=== PATIENT | female | born 1975 | race Two or more races ===

== ENCOUNTER 2025-04-05 11:00 | Emergency (ER) | payer SELFPAY ==
[2025-04-05] VITALS (27 sets, daily range): BP systolic 100–129; BP diastolic 42–79; PULSE 68–93; RESP 14–32; TEMP 36.7–37.4; O2SAT 97–100; BMI 28.5
--- NOTE | 2025-04-05 11:11 | CT_ITS ---
FINAL REPORT TECHNIQUE: Axial imaging of the chest is obtained after the administration of contrast. 3-D MIP reformatted images were also obtained and reviewed per PE protocol. CLINICAL HISTORY: shortness of breath COMPARISON: None FINDINGS: The pulmonary arteries are well filled. There is no evidence of pulmonary embolus. There is no aortic dissection. Heart size is normal. There is no mediastinal, hilar, or axillary lymphadenopathy. There is a ground-glass opacity in the left upper lobe favored to be infectious or inflammatory. The lungs are otherwise clear. There is no pleural or pericardial effusion. Limited evaluation of the upper abdomen is without acute abnormality. No acute osseous abnormality. IMPRESSION: No evidence of pulmonary embolism or aortic dissection. Ground-glass opacity left upper lobe, favor infectious or inflammatory. Reviewed, Interpreted and Dictated by Jaimee Pinto MD Transcribed by Mary Kay Saldivar Authenticated and [facility]
--- NOTE | 2025-04-05 11:14 | CT_ITS ---
FINAL REPORT TECHNIQUE: Axial imaging of the abdomen and pelvis was obtained after the intravenous administration of contrast for CTA protocol. This study was performed with techniques to keep radiation doses as low as reasonably achievable (ALARA). Individualized dose reduction techniques using automated exposure control or adjustment of mA and/or kV according to the patient's size were employed. CLINICAL HISTORY: poss gi FINDINGS: There is no abdominal aortic aneurysm or dissection. His enteric vessels are widely patent, without stenosis. Renal arteries and iliac arteries are patent without stenosis. There is no evidence of active GI bleed. Liver is fatty infiltrated. Solid abdominal organs are without acute abnormality. There is no acute GI abnormality. Appendix is normal. Uterus and ovaries are normal for patient's age. There is no lymphadenopathy or ascites. IMPRESSION: No active GI hemorrhage or acute abnormality. Reviewed, Interpreted and Dictated by Jaimee Pinto MD Transcribed by Ramonita Ruvalcaba Authenticated and [facility]
--- NOTE | 2025-04-05 11:15 | ED_ITS ---
<Statement entered by Bennie Rios MD - 04/06/25 15:15> Bennie Rios MD: I was consulted by the LUIS, and we discussed the complexity of the problems being addressed. I approve the treatment and management plan for this patient's care in the emergency department, thus performing a substantive portion of the medical decision making. Discharge Plan Disposition Patient Disposition: Home, Self-Care Prescriptions Prescriptions: New azithromycin 250 mg tablet 250 mg PO BID 5 Days Qty: 10 0RF Rx Instructions: 250 mg orally; 2 tabs day 1 then 1 tab days 2-5 cefdinir 300 mg capsule 300 mg PO BID 10 Days Qty: 20 0RF Referrals Follow up/Referrals: Kedar Cedillo MD [Staff Physician, Oncology] - See instructions Provider,MD Erica [Primary Care Provider, Medical] - See instructions Activity Restrictions/Add. Instructions Additional Instructions/Restrictions: Please have labs repeated at your primary care office this week. Please call Dr. Cedillo for a visit to see if you have any blood disorders. Return to the ED if you have any further symptoms Clinical Impressions Clinical Impression: Anemia, Pneumonia Instructions Patient Instructions: Pneumonia in Adults, Anemia Print Language Print Language: Malay Discharge ED Provider: Bennie Rios HPI <Dee Brigette (ED), SHANK TURNER - Last Filed: 04/05/25 16:01> General Chief Complaint: Weakness Stated Complaint: Low hemoglobin Time Seen by Provider: 04/05/25 11:09 Mode of Arrival: Family Vehicle Source of Information: Patient Limitations: Language Barrier (Used monument erector) History of Present Illness HPI narrative: 49-year-old female presents to the ED today for weakness, fatigue, chest pain but no shortness of breath. She says that her PCP did lab work on Thursday and called her today to come and for possible transfusion. Patient has no nausea, vomiting or diarrhea. She reports no dark stools and no vomiting blood. She says that she has had a transfusion 2 or 3 years ago in [place] and they said it was anemia. Related Data Previous Rx's ?Medication ?Instructions ?Recorded azithromycin 250 mg tablet 250 mg PO BID 5 days #10 ta bs 04/05/25 cefdinir 300 mg capsule 300 mg PO BID 10 days #20 ca ps 04/05/25 Allergies Allergy/AdvReac Type Severity Reaction Status Date / Time No Known Allergies Allergy Verified 04/05/25 11:25 PFSH <Dee Machuca (ED), SHANK TURNER - Last Filed: 04/05/25 16:01> PFS Disclaimer: The information contained in this section may have been updated after the patient was seen, as this information can be updated by other users. Social History (Updated 04/05/25 @ 16:00 by Dee Machuca (ED), SHANK TURNER) Smoking Status: Never smoker alcohol intake: never current occupational status: other Travel in the last 8 weeks?: None Have you lived/traveled outside US in past 30 days?: No Contact w/someone who lives/traveled outside US past 30 days?: No Exposure to someone with infectious disease in past 14 days?: No Do you have a fever (greater than 100.4 F or 38 C)?: No Have you tested positive for COVID-19?: No Exposed to someone with COVID-19 in past 14 days?: No Do you have a sore throat?: No Do you have a cough?: No Do you have any weakness?: No Do you have any diarrhea?: No Are you experiencing any unusual bleeding?: No Do you have any muscle aches/pain?: No Do you have any abdominal pain?: No Are you experiencing loss of taste or smell?: No <Dee Machuca (ED), SHANK TURNER - Last Filed: 04/05/25 16:01> ROS Obtained: Yes Systems reviewed as appropriate & no additional complaints except as documented Constitutional Constitutional: Reports as per HPI Physical Exam <Dee Machuca (ED), SHANK TURNER - Last Filed: 04/05/25 16:01> General General appearance: alert and in no apparent distress Head Head exam: normocephalic Eye Eye exam: Present PERRL and EOMI ENT ENT exam: Present mucous membranes moist Neck Neck exam: Present full ROM and trachea midline Respiratory Respiratory exam: Present normal lung sounds bilaterally Cardiovascular Cardiovascular exam: Present regular rate, normal rhythm, +S1 and +S2 Abdominal Exam Abdominal exam: Present soft and normal bowel sounds Extremities Exam Extremities exam: Present full ROM Neurological Exam Neurological exam: Present alert and oriented X3 Skin Skin exam: Present warm and dry HEART Score <Dee Machuca (ED), SHANK TURNER - Last Filed: 04/05/25 16:01> HEART Score HEART Score assessment performed?: Yes History (anamnesis): Slightly suspicious ECG: Normal Age: 45-65 years Risk factors: 1-2 risk factors Troponin: </= normal limit HEART Score: 2 <Harshad Trinidad MD - Last Filed: 04/05/25 16:10> HEART Score HEART Score: 2 Critical Care <Dee Machuca (ED), SHANK TURNER - Last Filed: 04/05/25 16:01> Critical Care Time Critical Care Time: No Medical Decision Making <Dee Machuca (ED), SHANK TURNER - Last Filed: 04/05/25 16:01> [place] Inquiry Pt receiving controlled substance: No [place] was queried for this patient: No Vital Signs Vital Signs: 04/05/25 11:06 04/05/25 11:17 04/05/25 11:24 Temperature 99.4 F Temperature Source Temporal Artery Scan Pulse Rate 92 H 89 Pulse Rate [Right] 93 H Respiratory Rate 16 20 TAR Vitals Timing Blood Pressure 129/79 120/68 Blood Pressure [Right Arm] 129/79 Blood Pressure Mean Blood Pressure Mean [Right Arm] 95 Blood Pressure Source Automatic Cuff Blood Pressure Source [Right Arm] Automatic Cuff Blood Pressure Position Supine Blood Pressure Position [Right Arm] Sitting 02 Sat by Pulse Oximetry 99 98 98 Oxygen Delivery Method Room Air Room Air 04/05/25 11:25 04/05/25 11:30 04/05/25 11:45 Temperature Temperature Source Pulse Rate 85 80 82 Pulse Rate [Right] Respiratory Rate 19 32 H 19 TAR Vitals Timing Blood Pressure 121/68 120/68 117/75 Blood Pressure [Right Arm] Blood Pressure Mean Blood Pressure Mean [Right Arm] Blood Pressure Source Blood Pressure Source [Right Arm] Blood Pressure Position Blood Pressure Position [Right Arm] 02 Sat by Pulse Oximetry 98 97 98 Oxygen Delivery Method 04/05/25 12:15 04/05/25 12:45 04/05/25 12:47 Temperature 98.6 F Temperature Source Temporal Artery Scan Pulse Rate 71 74 Pulse Rate [Right] Respiratory Rate 14 15 24 TAR Vitals Timing Blood Pressure 106/59 L 108/59 L 103/60 L Blood Pressure [Right Arm] Blood Pressure Mean Blood Pressure Mean [Right Arm] Blood Pressure Source Automatic Cuff Blood Pressure Source [Right Arm] Blood Pressure Position Supine Blood Pressure Position [Right Arm] 02 Sat by Pulse Oximetry 99 98 Oxygen Delivery Method Room Air 04/05/25 12:47 04/05/25 12:52 04/05/25 13:00 Temperature 98.6 F 98.1 F Temperature Source Temporal Artery Scan Temporal Artery Scan Pulse Rate 74 75 Pulse Rate [Right] Respiratory Rate 25 H 24 16 TAR Vitals Timing Pre-Blood Vitals Blood Pressure 103/60 L 103/60 L 104/55 L Blood Pressure [Right Arm] Blood Pressure Mean 74 Blood Pressure Mean [Right Arm] Blood Pressure Source Automatic Cuff Automatic Cuff Blood Pressure Source [Right Arm] Blood Pressure Position Sitting Supine Blood Pressure Position [Right Arm] 02 Sat by Pulse Oximetry 98 100 Oxygen Delivery Method Room Air 04/05/25 13:00 04/05/25 13:01 04/05/25 13:04 Temperature 98.1 F Temperature Source Temporal Artery Scan Pulse Rate 75 76 75 Pulse Rate [Right] Respiratory Rate 25 H 24 16 TAR Vitals Timing Blood Pressure 112/58 L 104/55 L 104/55 L Blood Pressure [Right Arm] Blood Pressure Mean Blood Pressure Mean [Right Arm] Blood Pressure Source Automatic Cuff Blood Pressure Source [Right Arm] Blood Pressure Position Supine Blood Pressure Position [Right Arm] 02 Sat by Pulse Oximetry 100 100 100 Oxygen Delivery Method Room Air 04/05/25 13:05 04/05/25 13:05 04/05/25 13:10 Temperature 98.2 F 98.1 F Temperature Source Temporal Artery Scan Temporal Artery Scan Pulse Rate 71 76 71 Pulse Rate [Right] Respiratory Rate 22 20 22 TAR Vitals Timing Blood Pressure 107/63 L 107/63 L 104/59 L Blood Pressure [Right Arm] Blood Pressure Mean Blood Pressure Mean [Right Arm] Blood Pressure Source Automatic Cuff Automatic Cuff Blood Pressure Source [Right Arm] Blood Pressure Position Supine Supine Blood Pressure Position [Right Arm] 02 Sat by Pulse Oximetry 100 100 100 Oxygen Delivery Method Room Air Room Air 04/05/25 13:10 04/05/25 13:15 04/05/25 13:15 Temperature 98.2 F Temperature Source Temporal Artery Scan Pulse Rate 76 72 70 Pulse Rate [Right] Respiratory Rate 22 22 25 H TAR Vitals Timing Blood Pressure 104/59 L 103/61 L 103/61 L Blood Pressure [Right Arm] Blood Pressure Mean Blood Pressure Mean [Right Arm] Blood Pressure Source Automatic Cuff Blood Pressure Source [Right Arm] Blood Pressure Position Supine Blood Pressure Position [Right Arm] 02 Sat by Pulse Oximetry 100 100 100 Oxygen Delivery Method Room Air 04/05/25 13:17 04/05/25 13:30 04/05/25 13:30 Temperature 98.0 F Temperature Source Pulse Rate 71 70 69 Pulse Rate [Right] Respiratory Rate 26 H 19 19 TAR Vitals Timing Blood Pressure 100/60 L 106/64 L 106/64 L Blood Pressure [Right Arm] Blood Pressure Mean Blood Pressure Mean [Right Arm] Blood Pressure Source Automatic Cuff Blood Pressure Source [Right Arm] Blood Pressure Position Supine Blood Pressure Position [Right Arm] 02 Sat by Pulse Oximetry 100 100 100 Oxygen Delivery Method 04/05/25 13:33 04/05/25 13:45 04/05/25 14:00 Temperature 98.0 F Temperature Source Temporal Artery Scan Pulse Rate 70 68 71 Pulse Rate [Right] Respiratory Rate 19 15 25 H TAR Vitals Timing Blood Pressure 106/64 L 106/54 L 103/50 L Blood Pressure [Right Arm] Blood Pressure Mean Blood Pressure Mean [Right Arm] Blood Pressure Source Automatic Cuff Blood Pressure Source [Right Arm] Blood Pressure Position Supine Blood Pressure Position [Right Arm] 02 Sat by Pulse Oximetry 100 100 99 Oxygen Delivery Method Room Air 04/05/25 14:15 04/05/25 14:30 04/05/25 14:45 Temperature Temperature Source Pulse Rate 71 71 69 Pulse Rate [Right] Respiratory Rate 16 20 20 TAR Vitals Timing Blood Pressure 105/56 L 103/60 L 105/49 L Blood Pressure [Right Arm] Blood Pressure Mean Blood Pressure Mean [Right Arm] Blood Pressure Source Blood Pressure Source [Right Arm] Blood Pressure Position Blood Pressure Position [Right Arm] 02 Sat by Pulse Oximetry 100 99 99 Oxygen Delivery Method 04/05/25 15:00 04/05/25 15:57 Temperature 98.1 F Temperature Source Temporal Artery Scan Pulse Rate 72 70 Pulse Rate [Right] Respiratory Rate 26 H 22 TAR Vitals Timing Blood Pressure 107/63 L 116/67 Blood Pressure [Right Arm] Blood Pressure Mean Blood Pressure Mean [Right Arm] Blood Pressure Source Automatic Cuff Blood Pressure Source [Right Arm] Blood Pressure Position Supine Blood Pressure Position [Right Arm] 02 Sat by Pulse Oximetry 98 100 Oxygen Delivery Method Room Air Lab Data Labs: Lab Results 04/05/25 08:46: Urine Color Yellow, Urine Appearance Sl cloudy, Urine pH 6.5, Ur Specific Homer 1.025, Urine Protein Negative, Urine Glucose (UA) Negative, Urine Ketones Negative, Urine Blood Negative, Urine Nitrate Negative, Urine Bilirubin Negative, Urine Urobilinogen 0.2, Ur Leukocyte Esterase Trace, Urine RBC None, Urine WBC Occasional, Ur Squamous Epith Cells 3-5, Urine Bacteria 1+, Urine HCG, Qual Negative 04/05/25 11:20: WBC 7.3, RBC 4.52, Hgb 6.5 L*, Hct 26.3 L, MCV 58.2 L, MCH 14.4 L*, MCHC 24.7 L, RDW 22.6 H, Plt Count 205, MPV TNP, Neut % (Auto) 49.9, Lymph % (Auto) 42.9, [place] % (Auto) 4.7, Eos % (Auto) 1.9, Baso % (Auto) 0.5, Neut # (Auto) 3.6, Lymph # (Auto) 3.1, [place] # (Auto) 0.3, Eos # (Auto) 0.1, Baso # (Auto) 0.0, PT 10.7, INR 0.96, APTT 22.5 L, Sodium 139, Potassium 4.1, Chloride 105, Carbon Dioxide 25, Anion Gap 13.1, BUN 17, Creatinine 0.50 L, Estimated Creat Clear 150, Estimated GFR 132, Est GFR ( Amer) 160, Glucose 101 H, Calcium 9.2, Magnesium 2.1, Total Bilirubin 0.6, AST 47 H, ALT 31, Alkaline Phosphatase 86, Troponin I < 0.01, Total Protein 8.4 H, Albumin 4.5, Globulin 3.9 H, Albumin/Globulin Ratio 1.2, Lipase 62, Blood Type O Positive, Antibody Screen Negative, Crossmatch (AHG) See Detail 04/05/25 11:54: Blood Type Confirm O Positive 04/05/25 14:20: Troponin I < 0.01 04/05/25 11:20 04/05/25 11:20 Response Orders (Tests/Meds): ED MEDICATIONS Generic Name Dose Route Start Last Admin Trade Name Freq PRN Reason Stop Dose Admin Sodium Chloride 250 mls @ 25 mls/hr 04/05/25 11:45 04/05/25 16:03 Sod Chlor 0.9% 250ml Bag IV 04/06/25 11:44 Infused .Q10H MUSA Infusion Discontinued Medications Generic Name Dose Route Start Last Admin Trade Name Freq PRN Reason Stop Dose Admin Iopamidol 80 ml 04/05/25 12:33 04/05/25 12:34 Iopamidol-370 (76%);100ml Bottle IV 04/05/25 12:34 80 ml ONCE ONE Administration Sodium Chloride 50 ml 04/05/25 12:33 04/05/25 12:34 0.9 % Sodium Chloride 50 Ml Vial IV 04/05/25 12:34 50 ml ONCE ONE Administration Sodium Chloride 10 ml 04/05/25 12:33 04/05/25 12:34 Sodium Chloride 0.9% 10ml Syr (Rad Only) IV 04/05/25 12:34 10 ml ONCE ONE Administration ORDERS Category Date Time Status Transfuse RBC's [Red Blood Cells] Stat BBK 04/05/25 11:20 Completed Type and Screen Stat BBK 04/05/25 11:[address] angio abd/pel - GI Bleed Stat Cat Scan 04/05/25 11:14 Completed CTA Chest [CT angio chest PE protocol] Stat Cat Scan 04/05/25 11:11 Completed CBC [Complete Blood Count Auto Diff] Stat Lab 04/05/25 11:20 Completed Comprehensive Metabolic Panel Stat Lab 04/05/25 11:20 Completed Lipase Stat Lab 04/05/25 11:20 Completed Magnesium Stat Lab 04/05/25 11:20 Completed PT INR [Prothrombin Time INR] Stat Lab 04/05/25 11:20 Completed PTT [Activated Partial Thrombo Time] Stat Lab 04/05/25 11:20 Completed Trop I [Troponin I] Stat Lab 04/05/25 11:20 Completed Troponin I Q3H Lab 04/05/25 14:20 Completed Troponin I Q3H Lab 04/05/25 17:15 Ordered Urinalysis and Microscopic Stat Lab 04/05/25 08:46 Completed Urine , HCG Qual. Stat Lab 04/05/25 08:46 Completed MDM Narrative Medical Decision Narrative: patient is a 49-year-old female presenting to the emergency department for evaluation of weakness, fatigue, chest pain and possible anemia. Patient is hemodynamically stable and nontoxic-appearing upon arrival, afebrile. Differential diagnosis includes anemia, GI bleed, among others. Workup will be conducted with hematologic labs, specific imaging. Initial inventions include crystalloid bolus, likely packed red blood cells. Initial workup reviewed by me hematologic labs are remarkable for white blood cell count 7.3, hemoglobin 6.5, hematocrit 26.3, we have infused 1 unit of packed red blood cells. Sodium is 139, potassium 4.1, chloride 105 BUN and creatinine 17 and 0.5. Patient's AST 47 ALT 31. Troponin was less than 0.01 urine was essentially nonactionable. Patient had CT of chest and abdomen.CTA of chest showed no PE or aortic dissection, showed a ground glass opacity in the left upper lobe favor infectious or inflammatory. Patient has no upper respiratory symptoms. The CTA of the abdomen showed no active GI hemorrhage or acute abnormality. Patient's blood is still infusing patient is stable at this time. 1600 patient's blood is finished. She and I discussed the pneumonia and that I sent meds for her. Patient said that she already knew about the pneumonia. She was not on treatment. I discussed that I would place her on treatment. Patient is safe for discharge home with follow-up this week. <Bennie Rios MD - Last Filed: 04/05/25 12:39> Vital Signs Vital Signs: 04/05/25 11:06 04/05/25 11:17 04/05/25 11:24 Temperature 99.4 F Temperature Source Temporal Artery Scan Pulse Rate 92 H 89 Pulse Rate [Right] 93 H Respiratory Rate 16 20 TAR Vitals Timing Blood Pressure 129/79 120/68 Blood Pressure [Right Arm] 129/79 Blood Pressure Mean Blood Pressure Mean [Right Arm] 95 Blood Pressure Source Automatic Cuff Blood Pressure Source [Right Arm] Automatic Cuff Blood Pressure Position Supine Blood Pressure Position [Right Arm] Sitting 02 Sat by Pulse Oximetry 99 98 98 Oxygen Delivery Method Room Air Room Air 04/05/25 11:25 04/05/25 11:30 04/05/25 11:45 Temperature Temperature Source Pulse Rate 85 80 82 Pulse Rate [Right] Respiratory Rate 19 32 H 19 TAR Vitals Timing Blood Pressure 121/68 120/68 117/75 Blood Pressure [Right Arm] Blood Pressure Mean Blood Pressure Mean [Right Arm] Blood Pressure Source Blood Pressure Source [Right Arm] Blood Pressure Position Blood Pressure Position [Right Arm] 02 Sat by Pulse Oximetry 98 97 98 Oxygen Delivery Method 04/05/25 12:15 04/05/25 12:45 04/05/25 12:47 Temperature 98.6 F Temperature Source Temporal Artery Scan Pulse Rate 71 74 Pulse Rate [Right] Respiratory Rate 14 15 24 TAR Vitals Timing Blood Pressure 106/59 L 108/59 L 103/60 L Blood Pressure [Right Arm] Blood Pressure Mean Blood Pressure Mean [Right Arm] Blood Pressure Source Automatic Cuff Blood Pressure Source [Right Arm] Blood Pressure Position Supine Blood Pressure Position [Right Arm] 02 Sat by Pulse Oximetry 99 98 Oxygen Delivery Method Room Air 04/05/25 12:47 04/05/25 12:52 04/05/25 13:00 Temperature 98.6 F 98.1 F Temperature Source Temporal Artery Scan Temporal Artery Scan Pulse Rate 74 75 Pulse Rate [Right] Respiratory Rate 25 H 24 16 TAR Vitals Timing Pre-Blood Vitals Blood Pressure 103/60 L 103/60 L 104/55 L Blood Pressure [Right Arm] Blood Pressure Mean 74 Blood Pressure Mean [Right Arm] Blood Pressure Source Automatic Cuff Automatic Cuff Blood Pressure Source [Right Arm] Blood Pressure Position Sitting Supine Blood Pressure Position [Right Arm] 02 Sat by Pulse Oximetry 98 100 Oxygen Delivery Method Room Air 04/05/25 13:00 04/05/25 13:01 04/05/25 13:04 Temperature 98.1 F Temperature Source Temporal Artery Scan Pulse Rate 75 76 75 Pulse Rate [Right] Respiratory Rate 25 H 24 16 TAR Vitals Timing Blood Pressure 112/58 L 104/55 L 104/55 L Blood Pressure [Right Arm] Blood Pressure Mean Blood Pressure Mean [Right Arm] Blood Pressure Source Automatic Cuff Blood Pressure Source [Right Arm] Blood Pressure Position Supine Blood Pressure Position [Right Arm] 02 Sat by Pulse Oximetry 100 100 100 Oxygen Delivery Method Room Air 04/05/25 13:05 04/05/25 13:05 04/05/25 13:10 Temperature 98.2 F 98.1 F Temperature Source Temporal Artery Scan Temporal Artery Scan Pulse Rate 71 76 71 Pulse Rate [Right] Respiratory Rate 22 20 22 TAR Vitals Timing Blood Pressure 107/63 L 107/63 L 104/59 L Blood Pressure [Right Arm] Blood Pressure Mean Blood Pressure Mean [Right Arm] Blood Pressure Source Automatic Cuff Automatic Cuff Blood Pressure Source [Right Arm] Blood Pressure Position Supine Supine Blood Pressure Position [Right Arm] 02 Sat by Pulse Oximetry 100 100 100 Oxygen Delivery Method Room Air Room Air 04/05/25 13:10 04/05/25 13:15 04/05/25 13:15 Temperature 98.2 F Temperature Source Temporal Artery Scan Pulse Rate 76 72 70 Pulse Rate [Right] Respiratory Rate 22 22 25 H TAR Vitals Timing Blood Pressure 104/59 L 103/61 L 103/61 L Blood Pressure [Right Arm] Blood Pressure Mean Blood Pressure Mean [Right Arm] Blood Pressure Source Automatic Cuff Blood Pressure Source [Right Arm] Blood Pressure Position Supine Blood Pressure Position [Right Arm] 02 Sat by Pulse Oximetry 100 100 100 Oxygen Delivery Method Room Air 04/05/25 13:17 04/05/25 13:30 04/05/25 13:30 Temperature 98.0 F Temperature Source Pulse Rate 71 70 69 Pulse Rate [Right] Respiratory Rate 26 H 19 19 TAR Vitals Timing Blood Pressure 100/60 L 106/64 L 106/64 L Blood Pressure [Right Arm] Blood Pressure Mean Blood Pressure Mean [Right Arm] Blood Pressure Source Automatic Cuff Blood Pressure Source [Right Arm] Blood Pressure Position Supine Blood Pressure Position [Right Arm] 02 Sat by Pulse Oximetry 100 100 100 Oxygen Delivery Method 04/05/25 13:33 04/05/25 13:45 04/05/25 14:00 Temperature 98.0 F Temperature Source Temporal Artery Scan Pulse Rate 70 68 71 Pulse Rate [Right] Respiratory Rate 19 15 25 H TAR Vitals Timing Blood Pressure 106/64 L 106/54 L 103/50 L Blood Pressure [Right Arm] Blood Pressure Mean Blood Pressure Mean [Right Arm] Blood Pressure Source Automatic Cuff Blood Pressure Source [Right Arm] Blood Pressure Position Supine Blood Pressure Position [Right Arm] 02 Sat by Pulse Oximetry 100 100 99 Oxygen Delivery Method Room Air 04/05/25 14:15 04/05/25 14:30 04/05/25 14:45 Temperature Temperature Source Pulse Rate 71 71 69 Pulse Rate [Right] Respiratory Rate 16 20 20 TAR Vitals Timing Blood Pressure 105/56 L 103/60 L 105/49 L Blood Pressure [Right Arm] Blood Pressure Mean Blood Pressure Mean [Right Arm] Blood Pressure Source Blood Pressure Source [Right Arm] Blood Pressure Position Blood Pressure Position [Right Arm] 02 Sat by Pulse Oximetry 100 99 99 Oxygen Delivery Method 04/05/25 15:00 04/05/25 15:57 Temperature 98.1 F Temperature Source Temporal Artery Scan Pulse Rate 72 70 Pulse Rate [Right] Respiratory Rate 26 H 22 TAR Vitals Timing Blood Pressure 107/63 L 116/67 Blood Pressure [Right Arm] Blood Pressure Mean Blood Pressure Mean [Right Arm] Blood Pressure Source Automatic Cuff Blood Pressure Source [Right Arm] Blood Pressure Position Supine Blood Pressure Position [Right Arm] 02 Sat by Pulse Oximetry 98 100 Oxygen Delivery Method Room Air Lab Data Labs: Lab Results 04/05/25 08:46: Urine Color Yellow, Urine Appearance Sl cloudy, Urine pH 6.5, Ur Specific [place] 1.025, Urine Protein Negative, Urine Glucose (UA) Negative, Urine Ketones Negative, Urine Blood Negative, Urine Nitrate Negative, Urine Bilirubin Negative, Urine Urobilinogen 0.2, Ur Leukocyte Esterase Trace, Urine RBC None, Urine WBC Occasional, Ur Squamous Epith Cells 3-5, Urine Bacteria 1+, Urine HCG, Qual Negative 04/05/25 11:20: WBC 7.3, RBC 4.52, Hgb 6.5 L*, Hct 26.3 L, MCV 58.2 L, MCH 14.4 L*, MCHC 24.7 L, RDW 22.6 H, Plt Count 205, MPV TNP, Neut % (Auto) 49.9, Lymph % (Auto) 42.9, [place] % (Auto) 4.7, Eos % (Auto) 1.9, Baso % (Auto) 0.5, Neut # (Auto) 3.6, Lymph # (Auto) 3.1, [place] # (Auto) 0.3, Eos # (Auto) 0.1, Baso # (Auto) 0.0, PT 10.7, INR 0.96, APTT 22.5 L, Sodium 139, Potassium 4.1, Chloride 105, Carbon Dioxide 25, Anion Gap 13.1, BUN 17, Creatinine 0.50 L, Estimated Creat Clear 150, Estimated GFR 132, Est GFR ( Amer) 160, Glucose 101 H, Calcium 9.2, Magnesium 2.1, Total Bilirubin 0.6, AST 47 H, ALT 31, Alkaline Phosphatase 86, Troponin I < 0.01, Total Protein 8.4 H, Albumin 4.5, Globulin 3.9 H, Albumin/Globulin Ratio 1.2, Lipase 62, Blood Type O Positive, Antibody Screen Negative, Crossmatch (AHG) See Detail 04/05/25 11:54: Blood Type Confirm O Positive 04/05/25 14:20: Troponin I < 0.01 Response Orders (Tests/Meds): ED MEDICATIONS Generic Name Dose Route Start Last Admin Trade Name Freq PRN Reason Stop Dose Admin Sodium Chloride 250 mls @ 25 mls/hr 04/05/25 11:45 04/05/25 16:03 Sod Chlor 0.9% 250ml Bag IV 04/06/25 11:44 Infused .Q10H MUSA Infusion Discontinued Medications Generic Name Dose Route Start Last Admin Trade Name Freq PRN Reason Stop Dose Admin Iopamidol 80 ml 04/05/25 12:33 04/05/25 12:34 Iopamidol-370 (76%);100ml Bottle IV 04/05/25 12:34 80 ml ONCE ONE Administration Sodium Chloride 50 ml 04/05/25 12:33 04/05/25 12:34 0.9 % Sodium Chloride 50 Ml Vial IV 04/05/25 12:34 50 ml ONCE ONE Administration Sodium Chloride 10 ml 04/05/25 12:33 04/05/25 12:34 Sodium Chloride 0.9% 10ml Syr (Rad Only) IV 04/05/25 12:34 10 ml ONCE ONE Administration ORDERS Category Date Time Status Transfuse RBC's [Red Blood Cells] Stat BBK 04/05/25 11:20 Completed Type and Screen Stat BBK 04/05/25 11:[address] angio abd/pel - GI Bleed Stat Cat Scan 04/05/25 11:14 Completed CTA Chest [CT angio chest PE protocol] Stat Cat Scan 04/05/25 11:11 Completed CBC [Complete Blood Count Auto Diff] Stat Lab 04/05/25 11:20 Completed Comprehensive Metabolic Panel Stat Lab 04/05/25 11:20 Completed Lipase Stat Lab 04/05/25 11:20 Completed Magnesium Stat Lab 04/05/25 11:20 Completed PT INR [Prothrombin Time INR] Stat Lab 04/05/25 11:20 Completed PTT [Activated Partial Thrombo Time] Stat Lab 04/05/25 11:20 Completed Trop I [Troponin I] Stat Lab 04/05/25 11:20 Completed Troponin I Q3H Lab 04/05/25 14:20 Completed Troponin I Q3H Lab 04/05/25 17:15 Ordered Urinalysis and Microscopic Stat Lab 04/05/25 08:46 Completed Urine , HCG Qual. Stat Lab 04/05/25 08:46 Completed ECG Data Tracing #1: Attestation: I reviewed this ECG and interpreted as documented below: ECG Narrative: Normal sinus rhythm. No ST elevation or depression. QTc normal at 399 <Harshad Trinidad MD - Last Filed: 04/05/25 16:10> Vital Signs Vital Signs: 04/05/25 11:06 04/05/25 11:17 04/05/25 11:24 Temperature 99.4 F Temperature Source Temporal Artery Scan Pulse Rate 92 H 89 Pulse Rate [Right] 93 H Respiratory Rate 16 20 TAR Vitals Timing Blood Pressure 129/79 120/68 Blood Pressure [Right Arm] 129/79 Blood Pressure Mean Blood Pressure Mean [Right Arm] 95 Blood Pressure Source Automatic Cuff Blood Pressure Source [Right Arm] Automatic Cuff Blood Pressure Position Supine Blood Pressure Position [Right Arm] Sitting 02 Sat by Pulse Oximetry 99 98 98 Oxygen Delivery Method Room Air Room Air 04/05/25 11:25 04/05/25 11:30 04/05/25 11:45 Temperature Temperature Source Pulse Rate 85 80 82 Pulse Rate [Right] Respiratory Rate 19 32 H 19 TAR Vitals Timing Blood Pressure 121/68 120/68 117/75 Blood Pressure [Right Arm] Blood Pressure Mean Blood Pressure Mean [Right Arm] Blood Pressure Source Blood Pressure Source [Right Arm] Blood Pressure Position Blood Pressure Position [Right Arm] 02 Sat by Pulse Oximetry 98 97 98 Oxygen Delivery Method 04/05/25 12:15 04/05/25 12:45 04/05/25 12:47 Temperature 98.6 F Temperature Source Temporal Artery Scan Pulse Rate 71 74 Pulse Rate [Right] Respiratory Rate 14 15 24 TAR Vitals Timing Blood Pressure 106/59 L 108/59 L 103/60 L Blood Pressure [Right Arm] Blood Pressure Mean Blood Pressure Mean [Right Arm] Blood Pressure Source Automatic Cuff Blood Pressure Source [Right Arm] Blood Pressure Position Supine Blood Pressure Position [Right Arm] 02 Sat by Pulse Oximetry 99 98 Oxygen Delivery Method Room Air 04/05/25 12:47 04/05/25 12:52 04/05/25 13:00 Temperature 98.6 F 98.1 F Temperature Source Temporal Artery Scan Temporal Artery Scan Pulse Rate 74 75 Pulse Rate [Right] Respiratory Rate 25 H 24 16 TAR Vitals Timing Pre-Blood Vitals Blood Pressure 103/60 L 103/60 L 104/55 L Blood Pressure [Right Arm] Blood Pressure Mean 74 Blood Pressure Mean [Right Arm] Blood Pressure Source Automatic Cuff Automatic Cuff Blood Pressure Source [Right Arm] Blood Pressure Position Sitting Supine Blood Pressure Position [Right Arm] 02 Sat by Pulse Oximetry 98 100 Oxygen Delivery Method Room Air 04/05/25 13:00 04/05/25 13:01 04/05/25 13:04 Temperature 98.1 F Temperature Source Temporal Artery Scan Pulse Rate 75 76 75 Pulse Rate [Right] Respiratory Rate 25 H 24 16 TAR Vitals Timing Blood Pressure 112/58 L 104/55 L 104/55 L Blood Pressure [Right Arm] Blood Pressure Mean Blood Pressure Mean [Right Arm] Blood Pressure Source Automatic Cuff Blood Pressure Source [Right Arm] Blood Pressure Position Supine Blood Pressure Position [Right Arm] 02 Sat by Pulse Oximetry 100 100 100 Oxygen Delivery Method Room Air 04/05/25 13:05 04/05/25 13:05 04/05/25 13:10 Temperature 98.2 F 98.1 F Temperature Source Temporal Artery Scan Temporal Artery Scan Pulse Rate 71 76 71 Pulse Rate [Right] Respiratory Rate 22 20 22 TAR Vitals Timing Blood Pressure 107/63 L 107/63 L 104/59 L Blood Pressure [Right Arm] Blood Pressure Mean Blood Pressure Mean [Right Arm] Blood Pressure Source Automatic Cuff Automatic Cuff Blood Pressure Source [Right Arm] Blood Pressure Position Supine Supine Blood Pressure Position [Right Arm] 02 Sat by Pulse Oximetry 100 100 100 Oxygen Delivery Method Room Air Room Air 04/05/25 13:10 04/05/25 13:15 04/05/25 13:15 Temperature 98.2 F Temperature Source Temporal Artery Scan Pulse Rate 76 72 70 Pulse Rate [Right] Respiratory Rate 22 22 25 H TAR Vitals Timing Blood Pressure 104/59 L 103/61 L 103/61 L Blood Pressure [Right Arm] Blood Pressure Mean Blood Pressure Mean [Right Arm] Blood Pressure Source Automatic Cuff Blood Pressure Source [Right Arm] Blood Pressure Position Supine Blood Pressure Position [Right Arm] 02 Sat by Pulse Oximetry 100 100 100 Oxygen Delivery Method Room Air 04/05/25 13:17 04/05/25 13:30 04/05/25 13:30 Temperature 98.0 F Temperature Source Pulse Rate 71 70 69 Pulse Rate [Right] Respiratory Rate 26 H 19 19 TAR Vitals Timing Blood Pressure 100/60 L 106/64 L 106/64 L Blood Pressure [Right Arm] Blood Pressure Mean Blood Pressure Mean [Right Arm] Blood Pressure Source Automatic Cuff Blood Pressure Source [Right Arm] Blood Pressure Position Supine Blood Pressure Position [Right Arm] 02 Sat by Pulse Oximetry 100 100 100 Oxygen Delivery Method 04/05/25 13:33 04/05/25 13:45 04/05/25 14:00 Temperature 98.0 F Temperature Source Temporal Artery Scan Pulse Rate 70 68 71 Pulse Rate [Right] Respiratory Rate 19 15 25 H TAR Vitals Timing Blood Pressure 106/64 L 106/54 L 103/50 L Blood Pressure [Right Arm] Blood Pressure Mean Blood Pressure Mean [Right Arm] Blood Pressure Source Automatic Cuff Blood Pressure Source [Right Arm] Blood Pressure Position Supine Blood Pressure Position [Right Arm] 02 Sat by Pulse Oximetry 100 100 99 Oxygen Delivery Method Room Air 04/05/25 14:15 04/05/25 14:30 04/05/25 14:45 Temperature Temperature Source Pulse Rate 71 71 69 Pulse Rate [Right] Respiratory Rate 16 20 20 TAR Vitals Timing Blood Pressure 105/56 L 103/60 L 105/49 L Blood Pressure [Right Arm] Blood Pressure Mean Blood Pressure Mean [Right Arm] Blood Pressure Source Blood Pressure Source [Right Arm] Blood Pressure Position Blood Pressure Position [Right Arm] 02 Sat by Pulse Oximetry 100 99 99 Oxygen Delivery Method 04/05/25 15:00 04/05/25 15:57 Temperature 98.1 F Temperature Source Temporal Artery Scan Pulse Rate 72 70 Pulse Rate [Right] Respiratory Rate 26 H 22 TAR Vitals Timing Blood Pressure 107/63 L 116/67 Blood Pressure [Right Arm] Blood Pressure Mean Blood Pressure Mean [Right Arm] Blood Pressure Source Automatic Cuff Blood Pressure Source [Right Arm] Blood Pressure Position Supine Blood Pressure Position [Right Arm] 02 Sat by Pulse Oximetry 98 100 Oxygen Delivery Method Room Air Lab Data Labs: Lab Results 04/05/25 08:46: Urine Color Yellow, Urine Appearance Sl cloudy, Urine pH 6.5, Ur Specific Homer 1.025, Urine Protein Negative, Urine Glucose (UA) Negative, Urine Ketones Negative, Urine Blood Negative, Urine Nitrate Negative, Urine Bilirubin Negative, Urine Urobilinogen 0.2, Ur Leukocyte Esterase Trace, Urine RBC None, Urine WBC Occasional, Ur Squamous Epith Cells 3-5, Urine Bacteria 1+, Urine HCG, Qual Negative 04/05/25 11:20: WBC 7.3, RBC 4.52, Hgb 6.5 L*, Hct 26.3 L, MCV 58.2 L, MCH 14.4 L*, MCHC 24.7 L, RDW 22.6 H, Plt Count 205, MPV TNP, Neut % (Auto) 49.9, Lymph % (Auto) 42.9, Harney % (Auto) 4.7, Eos % (Auto) 1.9, Baso % (Auto) 0.5, Neut # (Auto) 3.6, Lymph # (Auto) 3.1, Harney # (Auto) 0.3, Eos # (Auto) 0.1, Baso # (Auto) 0.0, PT 10.7, INR 0.96, APTT 22.5 L, Sodium 139, Potassium 4.1, Chloride 105, Carbon Dioxide 25, Anion Gap 13.1, BUN 17, Creatinine 0.50 L, Estimated Creat Clear 150, Estimated GFR 132, Est GFR ( Amer) 160, Glucose 101 H, Calcium 9.2, Magnesium 2.1, Total Bilirubin 0.6, AST 47 H, ALT 31, Alkaline Phosphatase 86, Troponin I < 0.01, Total Protein 8.4 H, Albumin 4.5, Globulin 3.9 H, Albumin/Globulin Ratio 1.2, Lipase 62, Blood Type O Positive, Antibody Screen Negative, Crossmatch (AHG) See Detail 04/05/25 11:54: Blood Type Confirm O Positive 04/05/25 14:20: Troponin I < 0.01 Response Orders (Tests/Meds): ED MEDICATIONS Generic Name Dose Route Start Last Admin Trade Name Freq PRN Reason Stop Dose Admin Sodium Chloride 250 mls @ 25 mls/hr 04/05/25 11:45 04/05/25 16:03 Sod Chlor 0.9% 250ml Bag IV 04/06/25 11:44 Infused .Q10H MUSA Infusion Discontinued Medications Generic Name Dose Route Start Last Admin Trade Name Freq PRN Reason Stop Dose Admin Iopamidol 80 ml 04/05/25 12:33 04/05/25 12:34 Iopamidol-370 (76%);100ml Bottle IV 04/05/25 12:34 80 ml ONCE ONE Administration Sodium Chloride 50 ml 04/05/25 12:33 04/05/25 12:34 0.9 % Sodium Chloride 50 Ml Vial IV 04/05/25 12:34 50 ml ONCE ONE Administration Sodium Chloride 10 ml 04/05/25 12:33 04/05/25 12:34 Sodium Chloride 0.9% 10ml Syr (Rad Only) IV 04/05/25 12:34 10 ml ONCE ONE Administration ORDERS Category Date Time Status Transfuse RBC's [Red Blood Cells] Stat BBK 04/05/25 11:20 Completed Type and Screen Stat BBK 04/05/25 11:[address] angio abd/pel - GI Bleed Stat Cat Scan 04/05/25 11:14 Completed CTA Chest [CT angio chest PE protocol] Stat Cat Scan 04/05/25 11:11 Completed CBC [Complete Blood Count Auto Diff] Stat Lab 04/05/25 11:20 Completed Comprehensive Metabolic Panel Stat Lab 04/05/25 11:20 Completed Lipase Stat Lab 04/05/25 11:20 Completed Magnesium Stat Lab 04/05/25 11:20 Completed PT INR [Prothrombin Time INR] Stat Lab 04/05/25 11:20 Completed PTT [Activated Partial Thrombo Time] Stat Lab 04/05/25 11:20 Completed Trop I [Troponin I] Stat Lab 04/05/25 11:20 Completed Troponin I Q3H Lab 04/05/25 14:20 Completed Troponin I Q3H Lab 04/05/25 17:15 Ordered Urinalysis and Microscopic Stat Lab 04/05/25 08:46 Completed Urine , HCG Qual. Stat Lab 04/05/25 08:46 Completed MDM Narrative Medical Decision Narrative: patient is a 49-year-old female presenting to the emergency department for evaluation of weakness, fatigue, chest pain and possible anemia. Patient is hemodynamically stable and nontoxic-appearing upon arrival, afebrile. Differential diagnosis includes anemia, GI bleed, among others. Workup will be conducted with hematologic labs, specific imaging. Initial inventions include crystalloid bolus, likely packed red blood cells. Initial workup reviewed by [facility] hematologic labs are remarkable for white blood cell count 7.3, hemoglobin 6.5, hematocrit 26.3, we have infused 1 unit of packed red blood cells. Sodium is 139, potassium 4.1, chloride 105 BUN and creatinine 17 and 0.5. Patient's AST 47 ALT 31. Troponin was less than 0.01 urine was essentially nonactionable. Patient had CT of chest and abdomen.CTA of chest showed no PE or aortic dissection, showed a ground glass opacity in the left upper lobe favor infectious or inflammatory. Patient has no upper respiratory symptoms. The CTA of the abdomen showed no active GI hemorrhage or acute abnormality. Patient's blood is still infusing patient is stable at this time. 1600 patient's blood is finished. She and I discussed the pneumonia and that I sent meds for her. Patient said that she already knew about the pneumonia. She was not on treatment. I discussed that I would place her on treatment. Patient is safe for discharge home with follow-up this week. Harshad Trinidad MD: I was consulted by the LU[facility], and we discussed the complexity of the problems being addressed. I approved the treatment and management plan for this patient's care in the emergency department, thus performing a substantive portion of the medical decision making. Patient has a reportedly chronic anemia at baseline and has required transfusions before. Does not have any clinical signs or symptoms of a GI bleed. Does not have tachycardia to suggest class II or greater hemorrhage even if occult. Patient is hemodynamically stable throughout her stay in the emergency department is appropriate for outpatient management at this time.
[2025-04-05 11:35] LABS: Hematocrit 26.3 % (37.0-47.0); Immature Granulocytes % 0.1 %; Mean Corpuscular HGB Conc 24.7 g/dL (31.8-35.4); Mean Corpuscular Volume 58.2 fl (81-99); Nucleated Red Blood Cells % 0 %; Platelet Count 205 K/mm3 (142-424); Red Blood Count 4.52 M/mm3 (4.20-5.40); Red Cell Distribution Width-SD 44.5 fL; White Blood Count 7.3 K/mm3 (4.8-10.8)
[2025-04-05 11:36] LABS: Mean Corpuscular Hemoglobin 14.4 pg (27.0-31.2)
[2025-04-05 11:37] LABS: Hemoglobin 6.5 g/dL (12.2-16.2)
--- NOTE | 2025-04-05 11:37 | PC.NURSE ---
critical lab value called @[phone], provider notified
[2025-04-05 11:41] LABS: Albumin Level 4.5 g/dl (3.5-5.0); Chloride 105 mmol/L (98-107)
[2025-04-05 11:42] LABS: Potassium 4.1 mmoL/L (3.5-5.1); Sodium 139 mmol/L (136-145)
--- NOTE | 2025-04-05 11:42 | ECG_ITS ---
APPROVED REPORT Exam: Resting ECG HR:73 bpm ECG Measurements Heart Rate 73 AXES WY 136 P 18 QRSd 104 QRS 39 QT 373 T 10 QTc 399 Conclusion SINUS RHYTHM NORMAL ECG Electronically signed by : YASMANY MILLER, 04/05/2025 21:54:09
--- OUTSIDE RECORDS SUMMARY | 2025-04-05 11:42 | XMS_ITS | Clinical Summary ---
Author Organization Healthcare Address [address] [place] [address] Care Team Providers Care Siebel Administrator Name Role Phone Unavailable Primary Care Provider Unavailabl e Social History Tobacco Use Types Packs/Day Years Used Date Smoking Tobacco: Never Smokeless Tobacco: Never Tobacco Cessation:Counseling Given: Not Answered Comments No Sex and Gender Information Value Date Recorded Sex Assigned at Not on file Legal Sex Female 6:30 PM EDT Gender Identity Not on file Sexual Orientation Not on file Last Filed Vital Signs Vital Sign Reading Time Taken Comments Blood Pressure - - Pulse - - Temperature - - Respiratory Rate - - Oxygen Saturation - - Inhaled Oxygen Concentration - - Weight 83.5 kg (184 lb) 03/21/2024 8:08 AM EST Height 157.5 cm (5' 2 ) 03/21/2024 8:08 AM EST Body Mass Index 33.65 03/21/2024 8:08 AM EST Plan of Treatment Upcoming Encounters Date Type Department Care Team (Late st Contact Info) Description 05/30/2025 9:00 AM EST Appointment [facility] [address] [place] [address] 05/30/2025 9:45 AM EST Appointment [facility] [address] [place] [address] Health Maintenance Due Date Last Done Comments [facility]-Depression Screening 1977 [facility]-HIV Screening 1977 [facility]-Hepatitis C Screening 1977 [facility]-/Child/Adol SDOH Screenings 1977 [facility]-Obesity Intervention 12/10/1983 [facility]- SDOH Screenings 12/10/1995 [facility]-Adult SDOH Screenings 12/10/1995 [facility]-Hepatitis B Vaccines (1 of 3 - 19+ 3-dose series) 1996 [facility]-Pap Smear 1998 [facility]-Cervical Cancer Screening 12/10/2007 [facility]-HPV/Cotest 12/10/2007 CT Colonography 2022 Colonoscopy 2022 FIT-DNA 2022 FIT 2022 FOBT 2022 Sigmoidoscopy 2022 [facility]-Colorectal Cancer Screening 2022 [id number] Vaccine (3 - 2024- season) 2024 08/25/2020, 07/21/2020 [facility]-Influenza Vaccine (#1) 2024 [facility]-Zoster Vaccines (1 of 2) 12/10/2027 [facility]-DTaP,Tdap,and Td Vaccine s (3 - Td or Tdap) 12/13/2031 12/12/2021, 01/08/2012 HPV Vaccines (No Doses Required) Completed [facility]-HIB Vaccines Aged Out No longer e ligible based on patient's age to complete this topic [facility]-Hepatitis A Vaccines Aged Out No longer eligible based on patient's age to complete this topic [facility]-IPV Vaccines Aged Out No longer e ligible based on patient's age to complete this topic [facility]-Pneumococcal Vaccine: Pediatrics (0 to 5 Years) and At-Risk Patients (6 to 49 Years) Aged Out No longer eligible b ased on patient's age to complete this topic [facility]-Rotavirus Vaccines Aged Out No lo nger eligible based on patient's age to complete this topic
[2025-04-05 11:44] LABS: Alanine Aminotransferase 31 U/L (12-78); Anion Gap 13.1 mEq/L (5-15); Aspartate Amino Transferase 47 U/L (14-36); Blood Urea Nitrogen 17 mg/dl (7-17); Carbon Dioxide 25 mmol/L (22.0-30.0); Creatinine Clearance Estimated 150 mL/min (50-200); Creatinine,Serum 0.50 mg/dl (0.52-1.04); Estimated Glomerular Filt Rate 132 ml/min (>60); GFR (African American) 160 ML/MIN (>60)
[2025-04-05 11:45] LABS: Albumin/Globulin Ratio 1.2 (1.1-1.8); Alkaline Phosphatase 86 U/L (38-126); Bilirubin,Total 0.6 mg/dl (0.2-1.3); Calcium 9.2 mg/dl (8.4-10.2); Globulin 3.9 g/dL (1.3-3.2); Glucose 101 mg/dl (74-100); Lipase 62 U/L (23-300); Magnesium 2.1 mg/dl (1.6-2.3); Total Protein,Serum 8.4 g/dl (6.3-8.2)
[2025-04-05 12:00] LABS: Troponin I < 0.01 ng/ml (0.00-0.034)
[2025-04-05 12:01] LABS: Microscopic, Urine URINE MICROSCOPIC (MICROSCOPIC)
[2025-04-05 12:02] LABS: Activated Partial Thrombo Time 22.5 seconds (22.8-30.6); INR 0.96 (0.9-1.1); Prothrombin Time 10.7 seconds (10.1-12.5)
[2025-04-05 12:10] LABS: Bilirubin,Urine Negative (Negative); Color,Urine YELLOW (Yellow); Glucose,Urine (UA) Negative (Negative); Ketones,Urine Negative (Negative); Leukocyte Esterase,Urine TRACE (Negative); PH,Urine 6.5 (5.0-8.5); Protein,Urine Negative (Negative); Specific Gravity, Urine 1.025 (1.005-1.030); Urobilinogen,Urine 0.2 EU/dl (0.2)
[2025-04-05 12:13] LABS: Urine Pregnancy, HCG Qual. Negative (Negative)
[2025-04-05 12:30] LABS: Bacteria,Urine 1+ /lpf; WBC,Urine Occasional #/hpf (0-3)
[2025-04-05] MEDS: 0.9 % SODIUM CHLORIDE 50 ML VIAL IV (12:34)
[2025-04-05] MEDS: IOPAMIDOL-370 (76%);100ML BOTTLE 80 ML IV (12:34)
[2025-04-05] MEDS: SODIUM CHLORIDE 0.9% 10ML SYR (RAD ONLY) 10 ML IV (12:34)
[2025-04-05] MEDS: 0.9 % SODIUM CHLORIDE 250 ML 25 ML IV (13:12)
[2025-04-05 14:57] LABS: Troponin I < 0.01 ng/ml (0.00-0.034)
== END 2025-04-05 16:57 | disposition home or self-care (01) ==
PROVIDERS: Nurse Practitioner; Emergency Provider Student in an Organized Health Care Education/Training Program
DX: R07.9 Chest pain, unspecified (principal); J18.9 Pneumonia, unspecified organism; D64.9 Anemia, unspecified
CPT/HCPCS: 36415; 36430; 71275; 74174; 80053; 81001; 81025; 83690; 83735; 84484; 85025; 85610; 85730; 86850; 93005; 99285; J7050; P9016; Q9967